=== PATIENT | male | born 1955 | race African-American/Black ===

== ENCOUNTER 2016-11-22 16:00 | Emergency (ER) | payer MEDICARE, OTHER ==
[2016-11-22] MEDS ORDERED: NITROGLYCERIN 0.4 MG TAB SL PRN (16:07)
[2016-11-22] MEDS: SODIUM CHLORIDE 0.9% FLUSH 10 ML SOL IV PRN ×2 (16:07→17:56)
[2016-11-22] MEDS ORDERED: ALBUTEROL/IPRATROPIUM 1 VIAL SOL INH ONE (16:09)
[2016-11-22] MEDS ORDERED: ALBUTEROL/IPRATROPIUM 1 VIAL SOL ONE (16:13)
[2016-11-22 16:16] LABS: BASOPHILS % (AUTO) 2 % (0-3); EOSINOPHILS % (AUTO) 2 % (0-9); HEMATOCRIT 26 % (39-53); MEAN CORPUSCULAR HGB CONC 31.4 gm/dl (32.0-36.0); MONOCYTES % (AUTO) 6.3 % (0-12); NEUTROPHILS % (AUTO) 71.6 % (37-80)
[2016-11-22 16:18] VITALS: TEMP 97.6
[2016-11-22 16:22] LABS: MEAN CORPUSCULAR VOLUME 81 fL (80-100)
[2016-11-22 16:37] LABS: CALCIUM 8.6 mg/dl (8.5-10.1); POTASSIUM 4.3 mMol/L (3.5-5.1)
[2016-11-22] MEDS ORDERED: FUROSEMIDE 40 MG SOL IV ONE (16:42)
[2016-11-22] MEDS ORDERED: FUROSEMIDE 100 MG SOL ONE (17:00)
[2016-11-22 17:02] LABS: APPEARANCE,URINE Clear; BILIRUBIN,URINE NEGATIVE (NEGATIVE); COLOR,URINE Yellow; GLUCOSE, URINE (UA) NEGATIVE (NEGATIVE); KETONES,URINE NEGATIVE (NEGATIVE); LEUKOCYTE ESTERASE ,URINE NEGATIVE (NEGATIVE); NITRATE,URINE NEGATIVE (NEGATIVE); OCCULT BLOOD,URINE NEGATIVE (NEG-TRACE); PH,URINE 6.5
[2016-11-22] MEDS ORDERED: MORPHINE SULFATE 10 MG/ML SOL IV ONE (17:51)
[2016-11-22] MEDS ORDERED: MORPHINE SULFATE 10 MG/ML SOL ONE (17:52)
[2016-11-22 17:57] LABS: RBC,URINE NEG (0-3AV/HPF); WBC,URINE 0-3 (0-5AV/HPF)
[2016-11-22 18:46] VITALS: BP 147/56; PULSE 83; RESP 25; O2SAT 90
== END 2016-11-22 18:15 | disposition short-term general hospital (02) | DRG 282 ==
LOC: ED 16:00
DX: I21.4 Non-ST elevation (NSTEMI) myocardial infarction (principal); R06.02 Shortness of breath; Z79.01 Long term (current) use of anticoagulants
CPT/HCPCS: 71010; 80053; 81001; 82550; 83880; 84484; 85025; 85610; 85730; 93005; 99285; J1940; J2270; J7620